=== PATIENT | male | born 1970 | race African-American/Black ===

== ENCOUNTER 2017-06-09 09:59 | Emergency (ER) | payer SELFPAY ==
[~2017-06-09] VITALS: Ht 172.7 cm; Wt 88.6 kg
[~2017-06-09 09:59] MED LIST: AMOXICILLIN875 MG PO
[2017-06-09 10:07] VITALS: BP 146/97; PULSE 75; TEMP 97.9
[2017-06-09] MEDS ORDERED: PROAIR HFA0.09 MG/AC IH (10:39)
== END 2017-06-09 10:50 | disposition home or self-care (01) ==
LOC: COL.ER 09:59
DX: J45.901 Unspecified asthma with (acute) exacerbation (principal); F12.10 Cannabis abuse, uncomplicated

== ENCOUNTER 2017-10-12 13:15 | Emergency (ER) | payer SELFPAY ==
[~2017-10-12] VITALS: Ht 172.7 cm; Wt 84.1 kg
[~2017-10-12 13:15] MED LIST changes: +PROAIR HFA0.09 MG/AC IH
[2017-10-12 13:16] VITALS: BP 130/95; PULSE 109; TEMP 98.9
[2017-10-12] MEDS ORDERED: PROAIR HFA0.09 MG/AC IH (13:39)
[2017-10-12] MEDS ORDERED: TAMIFLU 75MG75 MG PO (13:39)
== END 2017-10-12 14:05 | disposition home or self-care (01) ==
LOC: COL.ER 13:15
DX: J11.1 Influenza due to unidentified influenza virus with other respiratory manifestations (principal); J45.909 Unspecified asthma, uncomplicated; F17.210 Nicotine dependence, cigarettes, uncomplicated

== ENCOUNTER 2021-08-14 05:33 | Emergency (ER) | payer SELFPAY ==
[~2021-08-14] VITALS: Ht 172.7 cm; Wt 97.7 kg
[~2021-08-14 05:33] MED LIST changes: +TAMIFLU 75MG75 MG PO
[2021-08-14 05:36] VITALS: BP 149/95; TEMP 98.2
[2021-08-14] MEDS ORDERED: NORCO 325 MG-51 TAB PO (06:45)
[2021-08-14 06:50] VITALS: PULSE 82
== END 2021-08-14 06:50 | disposition home or self-care (01) ==
LOC: COL.ER 05:33
DX: S43.101A Unspecified dislocation of right acromioclavicular joint, initial encounter (principal); J45.909 Unspecified asthma, uncomplicated; Z79.899 Other long term (current) drug therapy; Y04.0XXA Assault by unarmed brawl or fight, initial encounter

== ENCOUNTER 2021-11-08 08:03 | Emergency (ER) | payer SELFPAY ==
[~2021-11-08] VITALS: Ht 172.7 cm; Wt 95.5 kg
[~2021-11-08 08:03] MED LIST changes: +NORCO 325 MG-51 TAB PO
[2021-11-08] MEDS ORDERED: AMOXICILLIN 8751 TAB PO (08:58)
[2021-11-08 09:11] VITALS: BP 146/100; PULSE 91; TEMP 97.8
== END 2021-11-08 09:11 | disposition home or self-care (01) ==
LOC: COL.ER 08:03
DX: S91.114A Laceration without foreign body of right lesser toe(s) without damage to nail, initial encounter (principal); W26.0XXA Contact with knife, initial encounter

== ENCOUNTER 2022-04-30 07:50 | Emergency (ER) | payer SELFPAY ==
[~2022-04-30] VITALS: Ht 172.7 cm; Wt 93.2 kg
[~2022-04-30 07:50] MED LIST changes: +AMOXICILLIN 8751 TAB PO
[2022-04-30 07:55] VITALS: TEMP 98.2
[2022-04-30 08:46] VITALS: BP 164/98; PULSE 74
== END 2022-04-30 08:53 | disposition home or self-care (01) ==
LOC: COL.ER 07:50
DX: M25.561 Pain in right knee (principal); Y93.01 Activity, walking, marching and hiking